=== PATIENT | male | born 1965 | race Asian ===

== ENCOUNTER 2020-09-20 13:19 | Day surgery (SDC) | payer OTHER, SELFPAY ==
[~2020-09-20] VITALS: Ht 179.1 cm; Wt 82.1 kg
[~2020-09-20 13:19] MED LIST: CEFAZOLIN SOD 2 GM in D5W 50 ML IV ONE
[2020-09-20] MEDS ORDERED: LR 1,000 ML IV.SOLN IV ONE (17:45)
[2020-09-20] MEDS ORDERED: SEVOFLURANE 15 MIN GAS INH ONE (17:45)
[2020-09-20] MEDS ORDERED: PROPOFOL 200MG/ 20ML VIAL (DIPRIVAN) IV ONE (17:45)
[2020-09-20] MEDS ORDERED: KETOROLAC TROMETHAMINE 30 MG VIAL IVP ONE (17:45)
[2020-09-20] MEDS ORDERED: BUPIVACAINE /PF 0.25% 30 ML VIAL INJ ONE (17:45)
[2020-09-20] MEDS ORDERED: fentaNYL CITRATE/PF 100 MCG/2 ML AMP IVP ONE (17:45)
[2020-09-20] MEDS ORDERED: ONDANSETRON HCL 4 MG/2 ML VIAL IVP ONE (17:45)
[2020-09-20] MEDS ORDERED: POLYMYXIN 500,000/BACIT.10,000 UNITS in NS IRR 1 L IR ONE (17:51)
[2020-09-20] MEDS ORDERED: HYDROmorphone 1 INJ. 1 MG/ML CARTRIDGE IVP PRN (18:45)
[2020-09-20] MEDS ORDERED: ACETAMINOPHEN I.V. 1000 MG 100 ML IV ONE (18:45)
[2020-09-20] MEDS ORDERED: ONDANSETRON HCL 4 MG/2 ML VIAL IVP PRN (18:45)
[2020-09-20] MEDS ORDERED: KETOROLAC TROMETHAMINE 30 MG VIAL IVP PRN (18:45)
[2020-09-20] MEDS ORDERED: BUPIVACAINE LIPOSOME/PF 266 MG/20 ML VIAL INFIL ONE (18:54)
[2020-09-20 21:00] VITALS: BP_SYST 142
[2020-09-20 21:15] VITALS: BP_SYST 142
[2020-09-20 21:30] VITALS: BP_SYST 136
[2020-09-20 21:45] VITALS: BP_SYST 140
[2020-09-20 22:00] VITALS: BP_SYST 136; BP_SYST 140
== END 2020-09-20 22:20 | disposition home or self-care (01) ==
LOC: SDS 13:19 → SMU 13:22 → SDS 22:20
PROVIDERS: ATTEND Surgery
DX: K43.9 Ventral hernia without obstruction or gangrene (principal); K42.9 Umbilical hernia without obstruction or gangrene; I10 Essential (primary) hypertension; E78.5 Hyperlipidemia, unspecified; Z79.899 Other long term (current) drug therapy; Z20.822 Contact with and (suspected) exposure to COVID-19
CPT/HCPCS: 49560; 49568; 87081; 88302; C1781; C9290; J0690; J1885; J2405; J2704; J3010; J3490; J7060; J7120; U0003